=== PATIENT | male | born 1990 | race Caucasian/White ===

== ENCOUNTER 2016-11-20 13:33 | Inpatient (IN) | payer OTHER ==
[~2016-11-20] VITALS: Ht 162.6 cm; Wt 70.3 kg
--- NOTE | 2016-11-20 21:30 | NUR ---
Pre-Admission Note Pt is in stable condition and able to be admitted on the unit. Explained unit protocols regarding medications and vital signs Q4H. Pt verbalizes understanding. Pt has arrived to [facility]/t [facility]. BP:103/58 HR:69, RR:16, SpO2:97% T:97.7, Ht: 5'4", Wt: 155 lbs. Will continue with admission upon pt arrival on the unit.
[2016-11-20 21:40] VITALS: BP 103/58
--- NOTE | 2016-11-20 21:40 | NUR ---
Admission Note Pt is a 26 year old male admitted to [facility] on 11/20/2016 for Benzo dependence, arrived on the unit at 2140. NKA, Reports seizure episode 1 weeks ago d/t withdrawal as reported by pt. Pt was able to provide urine drug screen. Upon admission CIWA 4, BP 103/58, pulse 69, respirations 16, Spo2 97%, temp 97.7, no reports of pain 0/10, weight 155, height 54. Pt reports he does not have a primary care provider. Pt reports he is not a smoker. Pt denies being hospitalized within the past 30 days. Pt is able to understand and respond to all questions pertain to his hospitalization. Substance abuse History is as follows: 1. Xanax 2-4mg/weekly, last intake on 11/17/2016 of 2mg, at this rate for the past 6 months. Pt has been using for 5 years 2. Cocaine 3.5g/weekly, last intake on 11/19/2016 of 3.5g, at this rate for the past 2 years. 3. Marijuana 3.5g/daily, last intake on 11/20/2016 of 2g, at this rate for the past 15 years Pt reports longest sobriety period was for 2 3 years from 2013 2016. Treatment history is as follows: [facility] - 2005 for 2 days. When pt does not use he reports, I get very irritated, I can get seizures also". Pts trigger to use: "I don't know why I use, I get anxious and irritated, so I start using". Pt reports, father and mother have history of substance abuse. PMH: Anxiety, Depression, Chlamydia, Gonorrhea and Seizures. Pt reports, "I had a seizure last week because I was withdrawing". Pt reports he did not go to the hospital. Pt did not bring medications from home, he reports he does not take medications. Upon assessment, pt presents with anxiety, fatigue, reports mild chills throughout body, respirations even/unlabored, denies SOB/chest pain, face flushed, skin is intact, noted to be with moderate sweat, no open wounds, bowel sounds active x4, abdomen soft. Pt denies SI/HI. Educational information provided and left at beside, pt oriented to room and encouraged to notify staff with any concerns. Safety measures in place, call light within reach, side rails up x2, bed locked and in low position. Will continue to monitor.
[2016-11-20 22:06] LABS: *AMPHETAMINE, URINE NEGATIVE (NEGATIVE); *BARBITURATE, URINE NEGATIVE (NEGATIVE); *CANNABINOID, URINE POSITIVE (NEGATIVE); *COCCAINE, URINE POSITIVE (NEGATIVE); *OPIATE, URINE NEGATIVE (NEGATIVE); *PHENCYCLIDINE SCREEN,URINE NEGATIVE (NEGATIVE)
[2016-11-20] MEDS ORDERED: DIAZEPAM 5 MG TABLET PO PRN (22:45)
[2016-11-20] MEDS ORDERED: MIRALAX 17 GM POWD.PACK PO PRN (22:45)
[2016-11-20] MEDS ORDERED: ACETAMINOPHEN 325 MG TABLET PO PRN (22:45)
[2016-11-20] MEDS ORDERED: DIAZEPAM 10 MG TABLET PO PRN ×2 (22:45)
[2016-11-20] MEDS ORDERED: ONDANSETRON ODT 4 MG TAB.RAPDIS SL PRN (22:45)
[2016-11-20] MEDS ORDERED: diphenhydrAMINE 50 MG CAPSULE PO PRN (22:45)
[2016-11-20] MEDS ORDERED: DICYCLOMINE HCL 20 MG TABLET PO PRN (22:45)
[2016-11-20] MEDS ORDERED: LORAZEPAM 2 MG/1 ML VIAL IM PRN (22:45)
[2016-11-20] MEDS ORDERED: CLONIDINE HCL 0.1 MG TABLET PO PRN (22:45)
[2016-11-20] MEDS ORDERED: HYDROXYZINE PAMOATE 25 MG CAPSULE PO PRN (22:45)
[2016-11-20] MEDS ORDERED: IBUPROFEN 400 MG TABLET PO PRN (22:45)
[2016-11-20] MEDS ORDERED: LOPERAMIDE HCL 2 MG CAPSULE PO PRN ×2 (22:45)
[2016-11-20] MEDS ORDERED: MAG HYDROX/AL HYDROX/SIMETH 30 ML LIQUID UDC PO PRN (22:45)
[2016-11-20] MEDS ORDERED: MAGNESIUM HYDROXIDE 30 ML LIQUID UDC PO PRN (22:45)
[2016-11-21] VITALS: BP 105/54
--- NOTE | 2016-11-21 | NUR ---
Vital Sign BP 105/54, pulse 60, respirations 14, Spo2 97%, temp 98.1, no pain reported 0/10 CIWA deferred d/t pt sleeping to ass while pt is awake as ordered. Safety measures in place, will continue to monitor.
[2016-11-21 00:34] LABS: BASOPHILS # (AUTO) 0.1 K/uL (0.0-8.0); BASOPHILS % (AUTO) 0.6 % (0.0-2.0); EOSINOPHILS # (AUTO) 0.3 K/uL (0.0-0.7); EOSINOPHILS % (AUTO) 3.4 % (0.0-7.0); ETHANOL < 3 MG/DL (0-0); HEMATOCRIT 41.9 % (40-50); HEMOGLOBIN 14.3 G/DL (14.0-18.0); LYMPHOCYTES % (AUTO) 43.7 % (20.5-51.5); MEAN CORPUSCULAR HEMOGLOBIN 28.3 UUG (27.0-31.0); MEAN CORPUSCULAR HGB CONC 34 g/dL (32.0-37.0); MEAN CORPUSCULAR VOLUME 83.1 FL (82.0-92.0); MONOCYTES # (AUTO) 0.8 K/UL (0.1-1.30); NEUTROPHILS % (AUTO) 43.3 % (38.5-71.5); PLATELET COUNT (AUTO) 316 K/UL (150-450); RED BLOOD CELL COUNT(AUTO) 5.04 MIL/UL (4.7-6.1); WHITE BLOOD COUNT (AUTO) 9.2 K/UL (4.0-11.2)
[2016-11-21 00:38] LABS: ALANINE AMINOTRANSFERASE 22 U/L (16-63); ALKALINE PHOSPHATASE 89 U/L (50-136); ASPARTATE AMINOTRANSFERASE 19 U/L (15-37); BILIRUBIN,TOTAL 0.3 mg/dL (0.2-1.0); CARBON DIOXIDE 30 mmol/L (21-32); CHLORIDE 105 mmol/L (98-107); CREATININE 1.1 mg/dL (0.6-1.3); GLUCOSE 111 mg/dL (74-106); MAGNESIUM 1.8 mg/dL (1.8-2.4); POTASSIUM 3.9 mmol/L (3.5-5.1); TOTAL PROTEIN, SERUM 6.7 g/dL (6.4-8.2); UREA NITROGEN, BLOOD 17 mg/dL (7-18)
[2016-11-21 00:48] LABS: THYROID STIMULATING HORMONE 2.405 mIU/mL (0.358-3.740)
[2016-11-21 04:00] VITALS: BP 85/65
--- NOTE | 2016-11-21 04:00 | NUR ---
Vital Signs BP 85/65, pulse 52, respirations 14, Spo2 98%, temp 97.6, no pain reported 0/10 CIWA deferred d/t pt sleeping to ass while pt is awake as ordered. Safety measures in place, will continue to monitor.
--- NOTE | 2016-11-21 07:00 | NUR ---
End of Shift Pt is a 26 year old male admitted for Benzo dependence. Upon admission, pt reported using Xanax 2-4mg/weekly, last intake on 11/17/2016 of 2mg, at this rate for the past 6 months, Cocaine 3.5g/weekly, last intake on 11/19/2016 of 3.5g and Marijuana 3.5g/daily, last intake on 11/20/2016 of 2g. PMH: Anxiety, Depression, Chlamydia, Gonorrhea and Seizures. Pt reports, I had a seizure last week because I was withdrawing. NKA, regular diet, fall/seizure precautions and full code. During CIWA 4, no PRN medications administered. Pt slept all throughout shift, slept for 7 hours, intake of 480 ml PO and voids x1. Safety measures in place, call light within reach, side rails up x2, bed locked and in low position. Endorsed to day shift nurse.
--- NOTE | 2016-11-21 07:02 | NUR ---
Start of Shift Endorsement received from nightshift nurse. PT is a 26 y/o male admitted for cocaine dependence. Pt has been placed under observation under the care of Dr. Conroy. Pt is mildly withdrawing at this time AEB CIWA 4 at 2200. Pt did not receive any PRN medications. Reports sleeping 7 hours during the night. VS WNL. Full Code. PT is alert and oriented x4. Pt is in STABLE condition at this time. Remains compliant with medication and diet regimen. All needs have been met, All safety measures in place per hospital policy. Bed in lowest position, side rails up x2, call-light within reach. Will continue to monitor
[2016-11-21 08:00] VITALS: BP 86/55
[2016-11-21] MEDS: MULTIVITAMINS,THERAPEUTIC TABLET PO SCH (09:00)
[2016-11-21] MEDS ORDERED: TUBERCULIN,PURIF.PROT.DERIV. 5 TU/0.1 ML TEST ID ONE (09:00)
[2016-11-21 12:00] VITALS: BP 128/56
[2016-11-21] MEDS ORDERED: LORAZEPAM 1 MG TABLET PO PRN ×2 (12:30)
[2016-11-21] MEDS ORDERED: CALCIUM CARBONATE 500 MG TAB.CHEW PO PRN (12:30)
[2016-11-21] MEDS ORDERED: LORAZEPAM 2 MG/1 ML VIAL IM PRN (12:30)
[2016-11-21 16:00] VITALS: BP 110/62
[2016-11-21 17:15] LABS: *AMPHETAMINE, URINE NEGATIVE (NEGATIVE); *BARBITURATE, URINE NEGATIVE (NEGATIVE); *CANNABINOID, URINE POSITIVE (NEGATIVE); *COCCAINE, URINE POSITIVE (NEGATIVE); *OPIATE, URINE NEGATIVE (NEGATIVE); *PHENCYCLIDINE SCREEN,URINE NEGATIVE (NEGATIVE)
--- NOTE | 2016-11-21 18:48 | NUR ---
End of Shift Endorsement given to nightshift nurse. PT is a 26 y/o male admitted for cocaine dependence. Pt has been placed under observation under the care of Dr. Conroy. Pt is not withdrawing at this time AEB CIWA 0. Pt has been scheduled to be discharged on 11/22/16. All documentation has been signed and completed. Pt participated in groups and activities. Intake: 3250ml, Void x5, BM x0. Pt did not receive any PRN medications. Reports sleeping 7 hours during the night. VS WNL. Full Code. PT is alert and oriented x4. Pt is in STABLE condition at this time. Remains compliant with medication and diet regimen. All needs have been met, All safety measures in place per hospital policy. Bed in lowest position, side rails up x2, call-light within reach. Will continue to monitor
[2016-11-21 20:00] VITALS: BP 102/67
--- NOTE | 2016-11-21 20:00 | NUR ---
Start of Shift Pt is a 26 year old male admitted for Benzo/Cocaine dependence. PMH: Anxiety, Depression, Chlamydia, Gonorrhea and Seizures. NKA, regular diet, fall/seizure precautions and full code. Pt is alert/oriented x4, respirations even/unlabored, denies SOB/chest pain, denies SI/HI, bowel sounds active x4, abdomen soft. No s/s of acute withdrawal noted AEB CIWA 0. Pt in stable condition, is scheduled for discharged tomorrow. Safety measures in place, call light within reach, side rails upx2, bed locked and in low position. Will continue to monitor.
[2016-11-22] VITALS: BP 109/74
--- NOTE | 2016-11-22 | NUR ---
Vital Signs BP 109/74, pulse 62, respirations 14, Spo2 98%, temp 98.1, no pain reported 0/10 CIWA deferred d/t pt sleeping to asses while pt is awake as ordered. Safety measures in place, will continue to monitor.
[2016-11-22 04:00] VITALS: BP 124/63
--- NOTE | 2016-11-22 04:00 | NUR ---
Vital Signs BP 124/63, pulse 57, respirations 16, Spo2 98%, temp 98.0, no pain reported 0/10 CIWA deferred d/t pt sleeping to asses while pt is awake as ordered. Safety measures in place, will continue to monitor.
--- NOTE | 2016-11-22 07:00 | NUR ---
End of Shift Pt is a 26 year old male admitted for Benzo/Cocaine dependence. PMH: Anxiety, Depression, Chlamydia, Gonorrhea and Seizures. NKA, regular diet, fall/seizure precautions and full code. During shift, Pt is alert/oriented x4, respirations even/unlabored, denies SOB/chest pain, denies SI/HI, No s/s of acute withdrawal noted AEB CIWA 0. No PRN medications administered during shift. Pt is scheduled for discharged today. Pt slept for 6 hours, intake of 855 ml PO and voids x2. Safety measures in place, call light within reach, side rails up x2, bed locked and in low position. Endorsed to day shift nurse.
--- NOTE | 2016-11-22 07:05 | NUR ---
Start of Shift Endorsement received from nightshift nurse. PT is a 26 y/o male admitted for cocaine dependence. Pt has been placed under observation under the care of Dr. Conroy. Pt is not withdrawing at this time AEB CIWA 0. Pt is scheduled to be discharged today. All documentation has been completed, discharge teaching has been done and all paperwork has been signed. Pt did not receive any PRN medications. Reports sleeping 8 hours during the night. VS WNL. Full Code. PT is alert and oriented x4. Pt is in STABLE condition at this time. Remains compliant with medication and diet regimen. All needs have been met, All safety measures in place per hospital policy. Bed in lowest position, side rails up x2, call-light within reach. Will continue to monitor
[2016-11-22 08:00] VITALS: BP 103/61
[2016-11-22] MEDS ORDERED: FAMOTIDINE 20 MG TABLET PO SCH (09:00)
[2016-11-22] MEDS: MULTIVITAMINS,THERAPEUTIC TABLET PO SCH (09:15)
--- NOTE | 2016-11-22 11:15 | NUR ---
PT has been discharged from [facility]. PT is in Stable condition, VS WNL. Denies suicidal and homicidal ideations at this time. . All documentation has been completed, paperwork signed and dated. Pt left with all of his belongings, medications and prescriptions. Pt has been discharged from [facility] on 11/22/16 at 1115. has been Notified.
[2016-11-23 07:38] LABS: HEPATITIS B SURFACE AG Negative (Negative)
== END 2016-11-22 11:15 | disposition other institution (70) | DRG 895 ==
LOC: SRC 21:07
PROVIDERS: ADMIT Internal Medicine; ATTEND Internal Medicine
PROC: HZ2ZZZZ Detoxification Services for Substance Abuse Treatment (ICD-10-PCS; principal; 2016-11-20)
PROC: HZ41ZZZ Group Counseling for Substance Abuse Treatment, Behavioral (ICD-10-PCS; 2016-11-21)
PROC: HZ31ZZZ Individual Counseling for Substance Abuse Treatment, Behavioral (ICD-10-PCS; 2016-11-22)
DX: F13.10 Sedative, hypnotic or anxiolytic abuse, uncomplicated (principal); F14.20 Cocaine dependence, uncomplicated; F10.21 Alcohol dependence, in remission; F41.9 Anxiety disorder, unspecified; F12.90 Cannabis use, unspecified, uncomplicated; K21.9 Gastro-esophageal reflux disease without esophagitis; F32.9 Major depressive disorder, single episode, unspecified
CPT/HCPCS: 36415; 70030-TC; 71010; 80307; 80346; 80349; 80353; 83735; 84443; 85025; 86705; 87340; 87806; A4663; G6040-TC